=== PATIENT | female | born 1980 | race Caucasian/White ===

== ENCOUNTER 2017-05-03 11:49 | Inpatient (IN) | payer MEDICAID ==
[2017-05-03] VITALS (15 sets, daily range): BP systolic 110–146; BP diastolic 65–89
[~2017-05-03] VITALS: Ht 157.5 cm; Wt 60.5 kg
[2017-05-03] MEDS ORDERED: HYDROmorphone 1 mg/ml syringe IV ONE (12:25)
[2017-05-03] MEDS ORDERED: ondansetron/PF 4mg/2ml inj IV ONE ×2 (12:25→15:00)
[2017-05-03] MEDS ORDERED: pantoprazole 40 MG vial IV ONE (12:25)
[2017-05-03 12:27] LABS: BASOPHILS # (AUTO) 0.1 X10'3 (0-0.2); BASOPHILS % (AUTO) 0.8 % (0-1); EOSINOPHILS # (AUTO) 0.2 X10'3 (0-0.9); EOSINOPHILS % (AUTO) 1.8 % (0-6); HEMATOCRIT 40.6 % (35.0-45.0); HEMOGLOBIN 14.4 g/dl (12.0-16.0); LYMPHOCYTES # (AUTO) 1.4 X10'3 (1.1-4.8); LYMPHOCYTES % (AUTO) 14.3 % (21-51); MEAN CORPUSCULAR HEMOGLOBIN 34.2 PG (27.0-31.0); MEAN CORPUSCULAR HGB CONC 35.3 % (33.0-36.5); MEAN CORPUSCULAR VOLUME 96.7 FL (78-98); MEAN PLATELET VOLUME 8.2 FL (7.4-10.4); MONOCYTES # (AUTO) 0.8 X10'3 (0-0.9); MONOCYTES % (AUTO) 7.8 % (2-12); NEUTROPHILS # (AUTO) 7.4 X10'3 (1.8-7.7); NEUTROPHILS % (AUTO) 75.3 % (42-75); PLATELET COUNT 235 X10'3 (140-440); RED CELL DISTRIBUTION WIDTH 12.8 % (11.5-14.5); WHITE BLOOD COUNT 9.9 X10'3 (4.5-11.0)
[2017-05-03 12:35] LABS: PARTIAL THROMBOPLASTIN TIME 25 SECONDS (22-32)
[2017-05-03] MEDS ORDERED: HYDROmorphone inj. 0.5 MG/0.5 ML DISP.SYRIN IV ONE ×3 (12:35→15:00)
[2017-05-03 12:41] LABS: ALANINE AMINOTRANSFERASE 27 U/L (12-78); ALBUMIN/GLOBULIN RATIO 1.2 (1.1-1.5); ALKALINE PHOSPHATASE 71 IU/L (46-116); ANION GAP 14 (8-16); ASPARTATE AMINO TRANSFERASE 22 U/L (10-37); BILIRUBIN,TOTAL 0.3 MG/DL (0.1-1.0); BLOOD UREA NITROGEN 8 MG/DL (7-18); BUN/CREATININE RATIO 12.9 (6.6-38.0); CALCIUM 9.3 MG/DL (8.5-10.1); CHLORIDE 103 MMOL/L (99-107); CREATININE 0.62 MG/DL (0.40-0.90); GLUCOSE 134 MG/DL (70-104); LIPASE 76 U/L (73-393); POTASSIUM 3.8 MMOL/L (3.5-5.1); SODIUM 141 MMOL/L (135-145); TOTAL CARBON DIOXIDE 24.1 MMOL/L (24-32); TOTAL PROTEIN 7.4 G/DL (6.4-8.2); eGFR > 90 ML/MIN
[2017-05-03] MEDS ORDERED: normal saline 1000ML IV soln IVB ONE (13:25)
[2017-05-03 15:14] LABS: URINE HCG NEGATIVE (NEG)
[2017-05-03 15:15] LABS: CLARITY,URINE Clear (Clear); COLOR,URINE Yellow (Yellow); GLUCOSE, URINE Negative (Neg); KETONES,URINE 15 mg/dl (Neg); LEUKOCYTE ESTERASE ,URINE Negative (Neg); NITRITES, URINE Negative (Neg); OCCULT BLOOD,URINE Negative (Neg); PROTEIN,URINE Negative (Neg); UROBILINOGEN,URINE 0.2 E.U/dL (0.2-1.0)
[2017-05-03] MEDS: normal saline 1000ml 1,000 ML IV SCH (15:16)
[2017-05-03] MEDS ORDERED: metoclopramide 5 mg/ml inj IV PRN (15:20)
[2017-05-03] MEDS ORDERED: diphenhydrAMINE 25mg capsule PO PRN (15:20)
[2017-05-03] MEDS ORDERED: morphine 5 MG/ML injection IV PRN ×4 (15:20→16:53)
[2017-05-03] MEDS ORDERED: diphenhydrAMINE 50 mg/ml inj IV PRN (15:20)
[2017-05-03] MEDS ORDERED: ondansetron/PF 4mg/2ml inj IV PRN ×2 (15:20→16:50)
[2017-05-03] MEDS ORDERED: HYDROmorphone inj. 0.5 MG/0.5 ML DISP.SYRIN IV PRN ×2 (15:20)
[2017-05-03] MEDS ORDERED: acetaminophen 325mg tablet PO PRN ×2 (15:20)
[2017-05-03] MEDS ORDERED: mag hydrox/Alum hydrox/simeth 30ml oral suspension PO PRN (15:20)
[2017-05-03] MEDS ORDERED: acetaminophen 650mg rectal suppository RC PRN (15:20)
[2017-05-03] MEDS ORDERED: bisacodyl 10mg suppository rectal RC PRN (15:20)
[2017-05-03] MEDS ORDERED: HYDROcodone/acetaminophen 5mg/325mg tablet PO PRN (15:20)
[2017-05-03] MEDS ORDERED: magnesium hydroxide 30ml (MOM) UD suspension PO PRN (15:20)
[2017-05-03 15:21] LABS: UA COLLECTION TYPE VOIDED
[2017-05-03 15:40] LABS: HCG SERUM QL NEGATIVE
[2017-05-03 15:49] LABS: URINE AMPHETAMINE SCREEN NEGATIVE (Neg); URINE BARBITUATE SCREEN NEGATIVE (Neg); URINE BENZODIAZEPINES SCREEN NEGATIVE (Neg); URINE CANNABINOID SCREEN NEGATIVE (Neg); URINE COCAINE SCREEN NEGATIVE (Neg); URINE METHADONE SCREEN NEGATIVE (Neg); URINE OPIATE SCREEN POSITIVE (Neg); URINE PHENCYCLIDINE SCREEN NEGATIVE (Neg)
[2017-05-03 15:57] LABS: D-DIMER 0.23 MG/L FEU (0-0.50)
[2017-05-03 16:24] LABS: MAGNESIUM 1.6 MG/DL (1.5-2.4)
[2017-05-03] MEDS ORDERED: ceFOXitin 2 GM ADDvantage bag 100 ML IV ONE (16:30)
[2017-05-03] MEDS ORDERED: ringers solution, lacted 1,000 ML IV SCH (16:46)
[2017-05-03] MEDS ORDERED: proCHLORperazine 10 MG/2 ml inj IV PRN (16:50)
[2017-05-03] MEDS ORDERED: meperidine/PF 50mg/ml syringe IV PRN ×2 (16:50)
[2017-05-03] MEDS ORDERED: morphine 2 MG/ML inj. syringe IV PRN ×2 (16:50)
[2017-05-03] MEDS ORDERED: NO HOME MEDS (17:25)
[2017-05-03] MEDS: pantoprazole 40 MG vial IV SCH (17:33)
[2017-05-03] MEDS ORDERED: ceFAZolin 1000mg inj ONE (17:46)
[2017-05-03] MEDS ORDERED: BUPIVAcaine/PF 2.5 mg/ml (0.25%) 30ml vial ONE (17:47)
[2017-05-03] MEDS ORDERED: sevoflurane 250ml liquid IH ONE (18:21)
[2017-05-03] MEDS ORDERED: propofol inj 20 ML IV ONE (18:22)
[2017-05-03] MEDS ORDERED: fentaNYL/PF 50MCG/1 ML 2ML syringe ONE (18:22)
[2017-05-03] MEDS ORDERED: midazolam 2 mg/2 ml injection ONE (18:22)
[2017-05-03] MEDS ORDERED: rocuronium 10mg/ml inj IV ONE (18:22)
[2017-05-03] MEDS ORDERED: neostigmine methylsulfate 1 MG/ML 10ml vial ONE (19:15)
[2017-05-03] MEDS ORDERED: glycopyrrolate 0.2mg/ml inj ONE (19:17)
[2017-05-03] MEDS: meperidine/PF 50mg/ml syringe IV PRN ×2 (19:54→20:02)
[2017-05-03] MEDS: heparin, porcine 5000 units/ml vial SQ SCH (20:00)
[2017-05-03] MEDS: docusate sod 100mg capsule PO SCH (20:58)
[2017-05-03] MEDS: piperacillin/tazo 3.375gm/50ml 50 ML IV SCH (20:58)
[2017-05-03] MEDS ORDERED: temazepam 15mg capsule PO PRN (21:00)
[2017-05-03] MEDS: HYDROcodone/acetaminophen 10/325mg tab PO PRN (23:14)
[2017-05-04] VITALS: BP 114/72
[2017-05-04 00:22] VITALS: BP 114/72
[2017-05-04 00:53] LABS: BASOPHILS % (AUTO) 0.2 % (0-1); EOSINOPHILS # (AUTO) 0.1 X10'3 (0-0.9); EOSINOPHILS % (AUTO) 0.5 % (0-6); HEMATOCRIT 33.6 % (35.0-45.0); HEMOGLOBIN 11.9 g/dl (12.0-16.0); LYMPHOCYTES # (AUTO) 1.3 X10'3 (1.1-4.8); LYMPHOCYTES % (AUTO) 10.7 % (21-51); MEAN CORPUSCULAR HEMOGLOBIN 33.8 PG (27.0-31.0); MEAN CORPUSCULAR HGB CONC 35.4 % (33.0-36.5); MEAN CORPUSCULAR VOLUME 95.4 FL (78-98); MEAN PLATELET VOLUME 8.6 FL (7.4-10.4); MONOCYTES # (AUTO) 0.8 X10'3 (0-0.9); MONOCYTES % (AUTO) 6.5 % (2-12); NEUTROPHILS # (AUTO) 10.3 X10'3 (1.8-7.7); NEUTROPHILS % (AUTO) 82.1 % (42-75); PLATELET COUNT 208 X10'3 (140-440); RED BLOOD COUNT 3.52 X10'6 (4.20-5.60); RED CELL DISTRIBUTION WIDTH 12.2 % (11.5-14.5); WHITE BLOOD COUNT 12.5 X10'3 (4.5-11.0)
[2017-05-04 01:07] LABS: ALANINE AMINOTRANSFERASE 29 U/L (12-78); ALBUMIN 2.9 G/DL (3.4-5.0); ALBUMIN/GLOBULIN RATIO 1.2 (1.1-1.5); ALKALINE PHOSPHATASE 51 IU/L (46-116); ANION GAP 8 (8-16); ASPARTATE AMINO TRANSFERASE 25 U/L (10-37); BILIRUBIN,TOTAL 0.4 MG/DL (0.1-1.0); BLOOD UREA NITROGEN 5 MG/DL (7-18); BUN/CREATININE RATIO 7.2 (6.6-38.0); CALCIUM 7.5 MG/DL (8.5-10.1); CHLORIDE 107 MMOL/L (99-107); CHOLESTEROL 161 MG/DL (0-200); CREATININE 0.69 MG/DL (0.40-0.90); GLUCOSE 125 MG/DL (70-104); HDL CHOLESTEROL 79 MG/DL (35-60); LDL CHOLESTEROL 74 MG/DL (50-100); POTASSIUM 3.9 MMOL/L (3.5-5.1); SODIUM 140 MMOL/L (135-145); TOTAL CARBON DIOXIDE 25.5 MMOL/L (24-32); TOTAL PROTEIN 5.4 G/DL (6.4-8.2); TRIGLYCERIDES 49 MG/DL (20-135); eGFR > 90 ML/MIN
[2017-05-04] MEDS: normal saline 1000ml 1,000 ML IV SCH ×2 (02:09→11:16)
[2017-05-04] MEDS: piperacillin/tazo 3.375gm/50ml 50 ML IV SCH ×2 (02:09→07:34)
[2017-05-04] MEDS: HYDROcodone/acetaminophen 10/325mg tab PO PRN ×3 (03:33→12:00)
[2017-05-04 04:00] VITALS: BP 105/70
[2017-05-04] MEDS ORDERED: pneumococcal 23-VAL P-sac vacc 25 mcg/0.5ml vial IMVAC ONE ×2 (06:10→10:00)
[2017-05-04 06:55] VITALS: BP 98/56
[2017-05-04] MEDS: pantoprazole 40 MG vial IV SCH (07:34)
[2017-05-04] MEDS: docusate sod 100mg capsule PO SCH (07:34)
[2017-05-04] MEDS: heparin, porcine 5000 units/ml vial SQ SCH (07:45)
[2017-05-04] MEDS ORDERED: nicotine 21mg patch - 24 hr TD SCH (08:00)
[2017-05-04 11:01] VITALS: BP 115/73
[2017-05-04] MEDS ORDERED: lactobacillus rhamnosus 10,000 MMU CELLS/CAPSULE PO SCH (17:30)
[2017-05-05] MEDS ORDERED: pantoprazole 40mg Tablet.DR PO SCH (07:30)
== END 2017-05-04 13:00 | disposition home or self-care (01) | DRG 263 ==
LOC: ER 11:50 → MED 3N 15:16
PROVIDERS: ADMIT Family Medicine; ATTEND Family Medicine
PROC: 0FT44ZZ Resection of Gallbladder, Percutaneous Endoscopic Approach (ICD-10-PCS; principal; 2017-05-03 18:21)
DX: K80.00 Calculus of gallbladder with acute cholecystitis without obstruction (principal); E86.0 Dehydration; F17.200 Nicotine dependence, unspecified, uncomplicated; K82.8 Other specified diseases of gallbladder
CPT/HCPCS: 36415; 71045; 76700; 80053; 80061; 80305; 81003; 81025; 83690; 83735; 83880; 84100; 84484; 84703; 85025; 85379; 85610; 85730; 86885; 86900; 86901; 87070; 93005; 96374; 96375; 96376; 99285; A7000; C9113; J0690; J0694; J1170; J2175; J2250; J2405; J2543; J2704; J2710; J3010; J3490; J7030; J7120